=== PATIENT | male | born 1975 | race Caucasian/White ===

== ENCOUNTER 2024-10-19 12:51 | Day surgery (SDC) | payer OTHER, SELFPAY ==
--- NOTE | 2024-10-19 13:00 | PCM.PRE.AN2 ---
ASA Classification* ASA Classification ASA Classification: 3 Assessment & Plan Anesthesia* Anesthesia Assessment Anesthesia Assessment: Discussed sedation and/or anesthesia options, risks, benefits, and alternatives with patient/parents/legal guardian/POA. Questions invited. The patient/parents/legal guardian/POA seems to understand and agrees to proceed with anesthesia plan. Reviewed the physical assessment, medical history, allergy history and patient home medications list prior to surgery/procedure/anesthetic and documented any changes. Performed airway and anesthesia risk assessments. Anesthesia Type Anesthesia Type: MAC Anesthesia Focused Assessment* Airway Assessment Mouth opens: >3 cm Mallampati Score: II Focused Labs Anesthesia Preop lab: CBC CHEMISTRY COAG Pre-Assessment Diagnosis/Proposed Procedure Planned Operative Procedure(s): EGD Anesthesia History Anesthesia History - senior validation engineer: Anesthesia History - senior validation engineer Hx Hospitalization Yes: 09/25/24 HEPATORENAL 10/17/24 12:14 FAILURE Any Problems With Anesthesia No 10/17/24 12:14 Cholinesterase deficiency No 10/17/24 12:14 You/Your Family Experience No 10/17/24 12:14 fever (hyperthermia) with Relationship Recent Exposure to Contagious Disease Does patient have nerve No 10/17/24 12:14 stimulator Patient instructed to have device shut off --Does patient have Pacemaker or ICD? When Was Last Pacemaker Check QUESTION #4 FULL TEXT: You/Your Family Experience fever (hyperthermia) with Anesthesia Last Oral Intake Last Oral intake: Last Oral Intake NPO since Meds taken in AM with sips of water? Meds patient instructed to take am of surgery PONV PONV - senior validation engineer: PONV - senior validation engineer Female No 10/17/24 12:14 HX of Motion Sickness Yes 10/17/24 12:14 HX of N/V After Surgery No 10/17/24 12:14 Non-Smoker No 10/17/24 12:14 Duration of Surgery greater No 10/17/24 12:14 than 60 minutes Number of Risk Factors 1 10/17/24 12:14 PONV Score Low Risk 10/17/24 12:14 Respiratory Assessment Respiratory Assessment - senior validation engineer: Respiratory Tract Infection Hx - senior validation engineer Hx Respiratory Tract Infection No 10/17/24 12:14 STOP Sleep Apnea STOP Sleep Apnea - senior validation engineer: STOP Sleep Apnea - senior validation engineer Hx Hypertension No 10/17/24 12:14 Hx Sleep Apnea No 10/17/24 12:14 CPAP BIPAP Do you snore loudly (louder No 10/17/24 12:14 than talking or can be heard Do you often feel tired/ No 10/17/24 12:14 fatigued/ sleepy during daytime? Has anyone observed you stop No 10/17/24 12:14 breathing during sleep? STOP Results Negative 10/17/24 12:14 QUESTION #5 FULL TEXT : Do you snore loudly (louder than talking or can be heard through closed doors)? Tobacco Use History Tobacco Use History - senior validation engineer: Tobacco Use History - senior validation engineer Tobacco Use Smoking Status Former smoker 10/17/24 12:14 Hx Tobacco Use Yes: CHEWS TOBACCO 10/17/24 12:14 Years Smoking Packs Smoked per Day Smoking Cessation Date was Yes - quit smoking within 15 10/17/24 12:14 within the last 15 years years Hx Smoking Cessation Date Hx Smoking Cessation Counseling Hematologic Medial History Hematologic Hx - senior validation engineer: Hematologic Medical Hx - collaborating supervising physician Hx of Blood Transfusion No 10/17/24 12:14 Hx of Transfusion in last 3 No 10/17/24 12:14 Months Date of Last Transfusion (if within last 3 months) Ever experience any problems No 10/17/24 12:14 with transfusion(s)? Specify any problems Hx of Preganancy in last 3 N/A 10/17/24 12:14 Months Nurse Filling Out Transfusion MGRIFFITH 10/17/24 12:14 & Questions: Date: 10/17/24 10/17/24 12:14 Time: 12:17 10/17/24 12:14 Patient unable to answer at this time (ie. confused, unrespo /Reproduction History /Reproductive History - senior validation engineer: /Reproductive Hx- senior validation engineer Hx Now Gestational Age (in weeks): EDC: Hx Hx Para Hx Section SAB PFSH Medical History Marijuana use Ambulates with cane Cirrhosis Dietary restriction Chews tobacco Former smoker History of edema Abdominal distention Poor appetite Anxiety Depression Alcohol abuse Home Medications ?Medication ?Instructions ?Recorded ?Last Taken ?Type propranolol 10 mg tablet 10 mg PO TID 10/13/24 Unknown History albuterol sulfate 90 mcg/actuation 2 puff inhalation Q4-6H PRN 10/14/24 Unknown History aerosol inhaler bronchospasm cyclobenzaprine 10 mg tablet 10 mg PO ONCE PRN muscle spasm 10/14/24 Unknown History furosemide 20 mg tablet (Lasix) 40 mg PO BID 10/14/24 Unknown History lactulose 20 gram/30 mL oral 20 ml PO TID 10/14/24 Unknown History solution multivitamin 1 tab PO QDAY 10/14/24 Unknown History spironolactone 50 mg tablet 50 mg PO BID 10/14/24 Unknown History folic acid 1 mg tablet 1 mg PO QDAY #90 tabs 10/17/24 Unknown Rx thiamine HCl (vitamin B1) 100 mg 100 mg PO QDAY #90 caps 10/17/24 Unknown Rx capsule Allergy/AdvReac Type Severity Reaction Status Date / Time No Known Allergies Allergy Verified 10/17/24 12:10 Surgical History No pertinent past surgical history Social History Smoking Status: Former smoker Review of Systems (Anesthesia) ROS Narrative System reviewed and no additional complaints, except as documented.
[2024-10-19 13:17] VITALS: BP 114/68; PULSE 64; RESP 16; TEMP 35.9; O2SAT 97; BMI 49.0
[2024-10-19] MEDS: Lactated Ringers 1,000 ML 15 ML IV (13:36)
--- NOTE | 2024-10-19 13:45 | EGD_PTH ---
PATIENT: MATTIE NAILS LOC: EN U#:[id number] AGE/SX: 49/M ROOM: RE10/19/[address]: Dr. Diaz Price DO : 1975 BED: DIS: 10/19/2024 SPEC #: [id number] RECD: 10/19/24 17:53 STATUS: MIGUEL REBebeto #: [id number] MARKELL: 10/19/24 13:[address]: Diaz Price DEPT: SURGICAL PATHOLOGY RECD BY: Brent Johnson ENTERED: 10/20/24 08:58 SP TYPE: EGD BIOPSY TRISTAN DR: Eleni Dias, BAND TIER-C Tissues: A - Gastric mucous membrane Procedures: Immunohistochemical Stains Surgery Specimen Level IV HEADER OPERATION: EGD with biopsy PRE-OP DIAGNOSIS: Hepatic cirrhosis, jaundice, edema, anemia, thrombocytopenia TISSUE SUBMITTED: A- Gastric body biopsy MICROSCOPIC DIAGNOSIS A. Stomach, gastric body, biopsy: Oxyntic mucosa with features of reactive gastropathy. IHC negative for H.pylori organisms. MICROSCOPIC DESCRIPTION Slides are reviewed. All matched controls reacted appropriately. These tests were developed and their performance characteristics determined by [facility]. They may not have been cleared or approved by the U.S. Food and Drug Administration. The FDA has determined that such clearance or approval is not necessary. The above immunohistochemical/dualISH markers are ordered and reviewed by the Pathologist. GROSS DESCRIPTION A. Received in formalin in a container labeled with the patient's name, date of , and Gastric body biopsy are 2 alfaro-pink fragments of mucosal tissue measuring 0.3 x 0.3 x 0.2 cm and 0.6 x 0.2 x 0.2 cm. Submitted in toto in A1. [facility] 10-20-2024 CPT:38916,16393
--- NOTE | 2024-10-19 13:58 | EX.PCM.CON.G ---
HPI Consult Data Date of Consult: 10/19/24 HPI Narrative Reason for Consultation: Anemia and cirrhosis HPI Narrative: MATTIE NAILS, is a 49 M who presents for the evaluation of anemia and screening for varices. LABS: CBC: 09/29/2024 HGB 10.1, PLT 54 CMP: 10/10/2024 Na 132, K+ 4.4, Albumin 2.0, T. Bili 15.1, AST 188, ALT 59, ALP 156 INR: 09/28/2024 1.9 AMA: 09/30/2024 negative HAV Ab IgM: 09/28/2024 negative HBVsA09/28/2024 negative HBV Core Ab IgM: 09/28/2024 negative HCV Ab: 09/28/2024 negative MELD: 24 ED 09/25/2024 with c/o hematemesis - admitted to ICU due to hepatorenal failure - reports he was told he has stage 3 liver cirrhosis - reports his renal doctor is managing his medications - Dr. Eddy Cani CURRENT MEDS PER PATIENT - Lactulose 20ml TID - he is having a BM 1x a day, before he would go 3-4 days without a BM - Flexerxil 10mg PRN - does not take often - Albuterol PRN - has not used since admission - Stool Softener PRN - Furosemide 40mg BID - Aldactone 50mg BID - Propranolol 10mg TID - Multi Vitamin ABD US 09/29/2024 no evidence of acute cholecystitis or biliary dilation, diffuse hyperechogenicity of the liver, most consistent with fatty infiltration ABD US 09/26/2024 hepatic steatosis, suspect cirrhosis - last EtOH 09/25/2024 - he was drinking 5th to liter of vodka a day - many years - he is not weighing himself daily - he is consuming 60g of protein daily - he is increasing his fluids and electrolytes daily - he is not restricting Na - he reports an increase in urination up to 4x a day in the past couple days - urine is much water filter cleaner - stool color is betancourt - stools are formed - no further episode of hematemesis - reports he woke up to blood coming out of his mouth - never had over bloody emesis - denies ever having melena - denies any family h/o liver disease - denies any NSAID use - denies any HB - he does have tattoos - denies any h/o IVDU - lives with 18y/o, 17y/o and 12y/o - he is a non-smoker - denies any falls [facility] History Marijuana use Ambulates with cane Cirrhosis Dietary restriction Chews tobacco Former smoker History of edema Abdominal distention Poor appetite Anxiety Depression Alcohol abuse Home Medications ?Medication ?Instructions ?Recorded ?Last Taken ?Type propranolol 10 mg tablet 10 mg PO TID 10/13/24 Unknown History albuterol sulfate 90 mcg/actuation 2 puff inhalation Q4-6H PRN 10/14/24 Unknown History aerosol inhaler bronchospasm cyclobenzaprine 10 mg tablet 10 mg PO ONCE PRN muscle spasm 10/14/24 Unknown History furosemide 20 mg tablet (Lasix) 40 mg PO BID 10/14/24 Unknown History lactulose 20 gram/30 mL oral 20 ml PO TID 10/14/24 Unknown History solution multivitamin 1 tab PO QDAY 10/14/24 Unknown History spironolactone 50 mg tablet 50 mg PO BID 10/14/24 Unknown History folic acid 1 mg tablet 1 mg PO QDAY #90 tabs 10/17/24 Unknown Rx thiamine HCl (vitamin B1) 100 mg 100 mg PO QDAY #90 caps 10/17/24 Unknown Rx capsule Allergy/AdvReac Type Severity Reaction Status Date / Time No Known Allergies Allergy Verified 10/17/24 12:10 Surgical History No pertinent past surgical history Social History Smoking Status: Former smoker ROS Constitutional Constitutional: Denies fatigue, fever(s), poor appetite, weight gain or weight loss Gastrointestinal Gastrointestinal: Denies belching, bloating, change in bowel habits, change in stool character, chewing difficulty, coffee ground emesis, constipation, cramping, diarrhea, dyspepsia, dysphagia, early satiety, excessive flatus, fecal incontinence, heartburn, hematemesis, hematochezia, hemorrhoids, loose stools, melena, nausea, odynophagia, rectal bleeding, tenesmus, vomiting or weight changes Physical Exam Const alert, oriented x3, no apparent distress and healthy appearing General Appearance: cooperative GI normal to inspection, nondistended, normoactive bowel sounds, soft to palpation, non-tender and non-distended Percussion: normal to percussion Rectal Exam: deferred Assessment & Plan Assessment/Plan (1) Thrombocytopenia: (2) Anemia: (3) Cirrhosis, alcoholic: (4) Edema: QUALIFIERS: Edema type: due to malnutrition PLAN: Assessment and Plan Assessment and Plan (1) Hepatic cirrhosis: Qualifiers: Hepatic cirrhosis type: alcoholic cirrhosis Ascites presence: without ascites Qualified Code(s): K70.30 - Alcoholic cirrhosis of liver without ascites (2) Jaundice: Status: Acute (3) Edema: Status: Acute Qualifiers: Edema type: due to malnutrition (4) Anemia: Status: Acute (5) Thrombocytopenia: Status: Acute Orders: Orders Liver Profile 10/14/24 K70.30 - Alcoholic cirrhosis of liver without ascites, R17 - Unspecified jaundice, R60.9 - Edema, unspecified Basic Metabolic Profile (BMP) 10/14/24 K70.30 - Alcoholic cirrhosis of liver without ascites, R17 - Unspecified jaundice, R60.9 - Edema, unspecified [facility] Misc. 10/14/24 K70.30 - Alcoholic cirrhosis of liver without ascites, R17 - Unspecified jaundice, R60.9 - Edema, unspecified Prothrombin Time w/INR 10/14/24 K70.30 - Alcoholic cirrhosis of liver without ascites, R17 - Unspecified jaundice, R60.9 - Edema, unspecified AFP, Tumor Marker 10/14/24 K70.30 - Alcoholic cirrhosis of liver without ascites, R17 - Unspecified jaundice, R60.9 - Edema, unspecified CBC W/Diff, Automated 10/14/24 D64.9 - Anemia, unspecified, D69.6 - Thrombocytopenia, unspecified Medications: New thiamine HCl (vitamin B1) 100 mg PO QDAY 90 caps 1RF folic acid 1 mg PO QDAY 90 tabs 1RF Plan 49y/o male with history of heavy alcohol use (750ml - 1L vodka daily), last drink 09/25/2024, presents to establish GI/hepatology care following recent hospital admission to ICU for SCOTT and decompensated cirrhosis. He reports waking with blood in his mouth, though denies hematemesis or melena. He is the primary caregiver for his three children (ages 12, 17, and 18). No tobacco, NSAID or IVDU. He is currently on lactulose 20ml TID with improved bowel regularity (daily formed betancourt stools), and recent diuretic adjustments have improved urine output (now voiding 4x/day). He is experiencing orthostatic dizziness and has 4+ BLE pitting edema, now improving with recent increased diuretic doses. Abdominal US shows no biliary dilation or acute cholecystitis; diffuse hepatic echogenicity consistent with fatty infiltration. His medications include lactulose as noted above, docusate sodium PRN, furosemide 40mg BID (recently increased), spironolactone 50mg BID (recently increased), propranolol 10mg TID (HR: 63, BP 113/74), albuterol PRN, cyclobenzaprine PRN and daily multi vitamin. Labs are revealing for HGB 10.1, PLT 54, Na 132, Albumin 2.0, T. Bili 15.1, AST/ALT 188/59, ALP 156. Nutritionally he is consuming approximately 60g of protein daily and is working to increase fluid and electrolyte intake, though he is not restricting sodium. His clinical picture is consistent with progressive ARLD, advanced decompensated cirrhosis (MELD 24), with portal hypertension, hepatic encephalopathy (resolved), and significant fluid overload (improving). I have scheduled him for an EGD to screen for esophageal varices. I recommend ABD US every 6 months and AFP yearly. Given his history of chronic alcohol use and risk of nutritional deficiency, I have started him on thiamine 100mg QD and folic acid 1mg QD for prophylaxis of Wernicke's encephalopathy and macrocytic anemia. I recommend consult with Dr. Ascencio (engraved roller inspector) for ongoing management of decompensated cirrhosis. In terms of screening, he is due for age related screening colonoscopy and will follow-up in the near future once stabilized to schedule. Note: iPeen speech recognition speech and hearing director software was used to create portions of this document. Sound-alike and misspelled words, as well as other speech and hearing director errors may be contained in the documentation. Patient Instructions: - Complete labs on Thursday - [facility] - EGD r/o varices - Will need screening colonoscopy in future - Consult with Dr. Ascencio - Daily weights, contact office with >5lb weight gain - Check BP and HR at home - Consider Midodrine if orthostasis persists - Have a list of all medications (name, dose, frequency) with you at all times - Avoid hepatotoxic agents (non-steroidal medications, herbal supplements, benzodiazepines, narcotics) - Continue to abstain from all alcohol - Vaccination for Hepatitis A and B - Low sodium diet, 2g per day - High protein diet 65-100g of protein daily - Consider mastercam programmer referral for nutritional needs (protein balance, sodium restriction) - Monitor fat soluble vitamins for deficiencies - ABD US Q6 months - due March 2025 - AFP yearly - due now - Continue to follow with Dr. Eddy Cain (nephrology) MEDICATIONS Continue propranolol 10mg TID - sit before standing, ambulate with cane, monitor BP/HR at home Continue Furosemide 40mg BID Continue Aldactone but change from 50mg BID to 100mg once daily in the morning Continue Lactulose 20ml TID - monitor frequency of stools over next week, may increase to 30ml TID - with goal of 2-3 BM daily (Consider adding Rifaximin in future) Continue Multi Vitamin Daily Continue stool softener as needed - Start Thiamine 100mg daily - Start Folic Acid 1mg daily (5) Jaundice:
[2024-10-19 14:45] VITALS: BP 114/68; BP 99/57; PULSE 68; RESP 16; TEMP 36.2; O2SAT 98
--- NOTE | 2024-10-19 14:45 | OP.EGD_ITS ---
Patient Name: Mason Suarez Procedure Date: 10/19/2024 2:23 PM Date of : 1975 Age: 49 Procedure: Upper GI endoscopy Indications: Cirrhosis with suspected esophageal varices Providers: Diaz Price DO Medicines: Monitored Anesthesia Care Patient Profile: This is a 49 year old male. Refer to note in patient chart for documentation of history and physical. Patient has symptoms of chronic abdominal distention, chronic nausea and chronic vomiting. Complications: No immediate complications. Procedure: Pre-Anesthesia Assessment: - Prior to the procedure, a History and Physical was performed, and patient medications and allergies were reviewed. The patient is competent. The risks and benefits of the procedure and the sedation options and risks were discussed with the patient. All questions were answered and informed consent was obtained. Patient identification and proposed procedure were verified by the physician in the pre-procedure area. Mental Status Examination: alert and oriented. Airway Examination: normal oropharyngeal airway and neck mobility. Respiratory Examination: clear to auscultation. CV Examination: normal. Prophylactic Antibiotics: The patient does not require prophylactic antibiotics. Prior Anticoagulants: The patient has taken no anticoagulant or antiplatelet agents except for NSAID medication. ASA Grade Assessment: II - A patient with mild systemic disease. After reviewing the risks and benefits, the patient was deemed in satisfactory condition to undergo the procedure. The anesthesia plan was to use monitored anesthesia care (MAC). Immediately prior to administration of medications, the patient was re-assessed for adequacy to receive sedatives. The heart rate, respiratory rate, oxygen saturations, blood pressure, adequacy of pulmonary ventilation, and response to care were monitored throughout the procedure. The physical status of the patient was re-assessed after the procedure. After obtaining informed consent, the endoscope was passed under direct vision. Throughout the procedure, the patient's blood pressure, pulse, and oxygen saturations were monitored continuously. The Endoscope was introduced through the mouth, and advanced to the second part of duodenum. The upper GI endoscopy was accomplished without difficulty. The patient tolerated the procedure well. Scope In: 2:34:28 PM Scope Out: 2:38:13 PM Total Procedure Duration Time 0 hours 3 minutes 45 seconds Findings: No gross lesions were noted in the entire esophagus. Severe portal hypertensive gastropathy was found in the entire examined stomach. Biopsies were taken with a cold forceps for histology. Verification of patient identification for the specimen was done. Estimated blood loss was minimal. Biopsies were taken with a cold forceps for Helicobacter pylori testing. Verification of patient identification for the specimen was done. Estimated blood loss was minimal. No gross lesions were noted in the entire examined duodenum. Impression: - No gross lesions in the entire esophagus. - Portal hypertensive gastropathy. Biopsied. - No gross lesions in the entire examined duodenum. Recommendation: - Discharge patient to home. - Resume previous diet. - Continue present medications. - Await pathology results. Procedure Code(s): --- Professional --- 59158, Esophagogastroduodenoscopy, flexible, transoral; with biopsy, single or multiple CPT copyright 2021 [employer]. All rights reserved. The codes documented in this report are preliminary and upon opera singer review may be revised to meet current compliance requirements. Diaz Price DO 10/19/2024 2:45:03 PM This report has been signed electronically. Number of Addenda: 0 Note Initiated On: 10/19/2024 2:23 PM
--- NOTE | 2024-10-19 14:45 | OP.CCLET_ITS ---
10/19/2024 Shahriar Obrien Re : Upper GI endoscopy procedure for Mason Suarez Dear Larissa This procedure was performed on Saturday, October 19, 2024. My impressions and recommendations are as follows: Impressions : - No gross lesions in the entire esophagus. - Portal hypertensive gastropathy. Biopsied. - No gross lesions in the entire examined duodenum. Recommendations : - Discharge patient to home. - Resume previous diet. - Continue present medications. - Await pathology results. My findings are described in the full procedure note, which is enclosed. If I can be of further assistance, please feel free to contact me at . Sincerely, Diaz Price, 10/19/2024 2:45:03 PM This report has been signed electronically.
[2024-10-19 14:50] VITALS: BP 103/59; BP 114/68; BP 99/57; PULSE 68; PULSE 69; RESP 16; TEMP 36.2; O2SAT 95; O2SAT 99
--- NOTE | 2024-10-19 14:50 | PCM.POST.ANE ---
Anesthesia: Postop Eval I Current Vital Signs Temperature: 97.1 F Pulse Rate: 69 Blood Pressure: 99/57 Respiratory Rate: 16 Pulse Ox: 95 Assessment Airway patent: Yes Spontaneous unlabored respirations: Yes nausea: No Vomiting: No Anesthesia Complication: No Fluid Hydration Crystalloid volume administer (ml): 400 Total IV fluid infused: 400 Progress Note Anesthesia document: Postop Eval 1 completed: Yes
[2024-10-19 14:55] VITALS: BP 104/62; BP 114/68; PULSE 63; RESP 16; TEMP 36.1; O2SAT 100
[2024-10-19 15:06] VITALS: BP 114/68
--- NOTE | 2024-10-19 17:46 | POSTOPAN2_ITS ---
Anesthesia Postop Eval I Sum Postop Eval Completion status Anesthesia document: Postop Eval 1 completed: Yes Anesthesia Postop Eval I Summary Anesthesia Postop Eval I Summary: Anesthesia Postop Eval I: Assessment Summary Airway patent Yes 10/19/24 14:50 CONE CHOCOLATE [email or web address].TNES Spontaneous unlabored Yes 10/19/24 14:50 CONE CHOCOLATE DIPPER.TNES respirations Mental status nausea No 10/19/24 14:50 CONE CHOCOLATE DIPPER.TNES Vomiting No 10/19/24 14:50 CONE CHOCOLATE DIPPER.TNES Anesthesia Postop Eval I: Fluid Summary Crystalloid volume administer 400 10/19/24 14:50 CONE CHOCOLATE DIPPER.TNES (ml) Colloids volume administered ( ml) Blood Product volume administered (ml) Total IV fluid infused 400 10/19/24 14:50 CONE CHOCOLATE DIPPER.TNES Anesthesia Postop Eval I: Summary Notes Anesthesia Complication No 10/19/24 14:50 CONE CHOCOLATE DIPPER.TNES Anesthesia Complication Comment: Post-operative progress note Anesthesia: Postop Eval II Evaluation Mental status: Awake and Calm Pain Level: 0 nausea: No Vomiting: No Complications Anesthesia Complication: No
--- NOTE | 2024-10-19 17:46 | PCM.POSTANE2 ---
Anesthesia Postop Eval I Sum Postop Eval Completion status Anesthesia document: Postop Eval 1 completed: Yes Anesthesia Postop Eval I Summary Anesthesia Postop Eval I Summary: Anesthesia Postop Eval I: Assessment Summary Airway patent Yes 10/19/24 14:50 TRAIN [email or web address] Spontaneous unlabored Yes 10/19/24 14:50 TRAIN INSPECTOR.TNES respirations Mental status nausea No 10/19/24 14:50 TRAIN INSPECTOR.TNES Vomiting No 10/19/24 14:50 TRAIN [email or web address].[email or web address] Anesthesia Postop Eval I: Fluid Summary Crystalloid volume administer 400 10/19/24 14:50 TRAIN INSPECTOR.TNES (ml) Colloids volume administered ( ml) Blood Product volume administered (ml) Total IV fluid infused 400 10/19/24 14:50 TRAIN [email or web address].[email or web address] Anesthesia Postop Eval I: Summary Notes Anesthesia Complication No 10/19/24 14:50 TRAIN INSPECTOR.TNES Anesthesia Complication Comment: Post-operative progress note Anesthesia: Postop Eval II Evaluation Mental status: Awake and Calm Pain Level: 0 nausea: No Vomiting: No Complications Anesthesia Complication: No
== END 2024-10-19 15:47 | disposition home or self-care (01) ==
LOC: EN 12:54 → AC 12:56
PROVIDERS: Visit Provider Internal Medicine Gastroenterology
PROC: 0DJ08ZZ Inspection of Upper Intestinal Tract, Via Natural or Artificial Opening Endoscopic (ICD-10-PCS; CPT 43235; principal; 2024-10-19 13:40)
DX: K70.30 Alcoholic cirrhosis of liver without ascites (principal); K76.6 Portal hypertension; D64.9 Anemia, unspecified; E46 Unspecified protein-calorie malnutrition; R60.9 Edema, unspecified; D69.6 Thrombocytopenia, unspecified; Z87.891 Personal history of nicotine dependence
CPT/HCPCS: 43239; 88305; 88342